=== PATIENT | female | born 1930 | race African-American/Black ===

== ENCOUNTER 2018-06-06 13:30 | Emergency (ER) | payer MEDICARE, OTHER ==
[~2018-06-06] VITALS: Ht 165.1 cm; Wt 83.0 kg
[2018-06-06] MEDS ORDERED: SODIUM CHLORIDE 0.9% 1,000 ML IV ONE (16:43)
[2018-06-06] MEDS ORDERED: LACTULOSE 20G/30ML UDC PO ONE (16:45)
[2018-06-06] MEDS ORDERED: MINERAL OIL 30ML BOTTLE PO ONE (16:45)
[2018-06-06] MEDS ORDERED: MAGNESIUM CITRATE 300ML SOLUTION PO ONE (16:45)
[2018-06-06] MEDS ORDERED: MAGNESIUM HYDROXIDE 400MG/5ML 30ML UDC PO ONE (16:45)
[2018-06-06 17:16] LABS: BASOPHILS % 0.7 % (0.0-2.0); HEMATOCRIT. 47.3 % (36.0-48.0); HEMOGLOBIN. 15.8 g/dL (12.0-16.0); LYMPHOCYTES % 31.3 % (20.0-50.0); MEAN CORPUSCULAR HEMOGLOBIN 32.3 pg (28.0-32.0); MEAN CORPUSCULAR VOLUME 96.7 fL (81.0-99.0); MEAN PLATELET VOLUME 8.2 fl (7.4-10.4); MONOCYTES % 8.4 % (2.0-8.0); NEUTROPHILS % 58.6 % (40.0-76.0); PLATELET 265 x1000/uL (130-400); RED CELL DISTRIBUTION WIDTH 14.6 % (11.6-14.6)
[2018-06-06 17:19] LABS: CHLORIDE 106 mEq/L (98-107)
[2018-06-06 17:20] LABS: INR 1.1
[2018-06-06 19:25] VITALS: BP 165/84
== END 2018-06-06 19:30 | disposition home or self-care (01) ==
LOC: ER 15:13 → EDBEDREQ 16:45 → ER 19:30 → CANBEDREQ 21:44
DX: R10.9 Unspecified abdominal pain (principal); K59.00 Constipation, unspecified; I10 Essential (primary) hypertension; Z90.710 Acquired absence of both cervix and uterus; Z96.649 Presence of unspecified artificial hip joint
CPT/HCPCS: 36415; 74176; 80053; 85025; 85610; 93005; 99284; J7030

== ENCOUNTER 2018-06-12 02:39 | Emergency (ER) | payer MEDICARE, OTHER ==
[~2018-06-12] VITALS: Ht 165.1 cm; Wt 82.0 kg
[2018-06-12] MEDS ORDERED: DOCUSATE SODIUM 100MG CAPSULE PO ONE (03:30)
[2018-06-12] MEDS ORDERED: MINERAL OIL 30ML BOTTLE PO ONE (03:30)
[2018-06-12] MEDS ORDERED: ASPIRIN 81MG TABLET PO ONE (03:30)
[2018-06-12 03:48] LABS: CHLORIDE 109 mEq/L (98-107)
[2018-06-12 03:50] LABS: BASOPHILS % 1.2 % (0.0-2.0); EOSINOPHILS % 1.8 % (0.0-5.0); LYMPHOCYTES % 30.9 % (20.0-50.0); MEAN CORPUSCULAR HEMOGLOBIN 31.9 pg (28.0-32.0); MEAN CORPUSCULAR VOLUME 95.8 fL (81.0-99.0); MEAN PLATELET VOLUME 8.2 fl (7.4-10.4); MONOCYTES % 9.1 % (2.0-8.0); PLATELET 227 x1000/uL (130-400); RED BLOOD CELL COUNT 4.69 mill/uL (4.2-5.4); RED CELL DISTRIBUTION WIDTH 14.2 % (11.6-14.6)
[2018-06-12 07:34] VITALS: BP 131/75
== END 2018-06-12 07:40 | disposition home or self-care (01) ==
LOC: ER 02:39
DX: M25.512 Pain in left shoulder (principal); K59.00 Constipation, unspecified; I10 Essential (primary) hypertension; Z90.710 Acquired absence of both cervix and uterus; Z96.649 Presence of unspecified artificial hip joint
CPT/HCPCS: 36415; 71045; 84484; 93005; 99284

== ENCOUNTER 2018-11-29 08:32 | Emergency (ER) | payer MEDICARE, OTHER ==
[~2018-11-29] VITALS: Ht 165.1 cm; Wt 85.0 kg
[2018-11-29 09:52] LABS: BASOPHILS % 1.1 % (0.0-2.0); EOSINOPHILS % 0.8 % (0.0-5.0); HEMATOCRIT. 43.6 % (36.0-48.0); HEMOGLOBIN. 15.1 g/dL (12.0-16.0); LYMPHOCYTES % 23.2 % (20.0-50.0); MEAN CORPUSCULAR VOLUME 95.7 fL (81.0-99.0); MEAN PLATELET VOLUME 8.9 fl (7.4-10.4); NEUTROPHILS % 65.9 % (40.0-76.0); PLATELET 185 x1000/uL (130-400); RED BLOOD CELL COUNT 4.56 mill/uL (4.2-5.4); RED CELL DISTRIBUTION WIDTH 14.1 % (11.6-14.6)
[2018-11-29 10:01] LABS: CHLORIDE 108 mEq/L (98-107)
[2018-11-29] MEDS ORDERED: MAGNESIUM HYDROXIDE 400MG/5ML 30ML UDC PO STA (11:46)
[2018-11-29] MEDS ORDERED: POLYETHYLENE GLYCOL 3350 (17GM) 1 DOSE PACK PO STA (11:46)
[2018-11-29 12:06] LABS: CLARITY URINE TURBID (CLEAR); COLOR URINE YELLOW (YELLOW); KETONES URINE NEGATIVE (NEGATIVE); LEUKOCYTE ESTERASE URINE 3+ (NEGATIVE); NITRITE URINE NEGATIVE (NEGATIVE); OCCULT BLOOD URINE NEGATIVE (NEGATIVE); PH URINE 7.5 (4.5-8.0); PROTEIN URINE NEGATIVE (NEGATIVE); SPECIFIC GRAVITY URINE 1.014 (1.005-1.030); UROBILINOGEN URINE 0.2 E.U./dL (0.2-1.0)
[2018-11-29 13:03] VITALS: BP 145/75
== END 2018-11-29 13:11 | disposition home or self-care (01) ==
LOC: ER 08:48
DX: N39.0 Urinary tract infection, site not specified (principal); K59.00 Constipation, unspecified; E78.00 Pure hypercholesterolemia, unspecified; I10 Essential (primary) hypertension; Z90.710 Acquired absence of both cervix and uterus; Z96.649 Presence of unspecified artificial hip joint
CPT/HCPCS: 36415; 81003; 93005; 99284